=== PATIENT | female | born 1985 | race American Indian/Alaskan Native ===

== ENCOUNTER 2022-01-22 16:08 | Emergency (ER) | payer OTHER ==
[2022-01-22] MEDS ORDERED: ACETAMINOPHEN W/CODEINE 300-30 MG TAB PO ONE (18:14)
[2022-01-22] MEDS ORDERED: KETOROLAC 10 MG TAB PO ONE (18:14)
[2022-01-22] MEDS ORDERED: LIDOCAINE-MPF (1%) 10 MG/1 ML VIAL 5 ML INFILTRATI ONE (18:15)
[2022-01-22] MEDS ORDERED: LIDOCAINE (2%) 20 MG/1 ML VIAL 20 ML MDV INFILTRATI ONE (18:26)
--- NOTE | 2022-01-22 19:12 | Emergency Department Report ---
- General Chief complaint: Extremity Injury, Upper Stated complaint: INFECTED FINGER Time Seen by Provider: 01/22/22 17:18 Source: patient Mode of arrival: Ambulatory Limitations: No Limitations - History of Present Illness Initial comments: 37-year-old black female presents to the emergency department for evaluation of pain and swelling to her right index finger for the past week. He states that she was seen by her primary care doctor a few days ago for same, started on antibiotics, but has not had any improvement. She states that she was given Keflex and doxycycline as antibiotics but she only took the Keflex and now has increased pain and swelling to the area. She denies fever. MD complaint: abscess/boil -: Gradual, week(s) (1) Tetanus Up to Date: yes Location: R hand Severity: severe Severity scale (0 -10): 10 Quality: aching, other (Throbbing) Consistency: constant Worsens with: palpation, movement Context: none (States that she bites her fingernails and sometimes gets this type of infection but not usually this bad.) Associated symptoms: denies other symptoms Treatments Prior to Arrival: antibiotic (Keflex p.o.) - Related Data Previous Rx's Medication Instructions Recorded Last Taken Type Cyclobenzaprine [Flexeril] 10 mg PO TID PRN #30 tablet 07/19/13 Unknown Rx Hydrocodone Bit/Acetaminophen 1 each PO Q8H PRN #20 tablet 07/19/13 Unknown Rx [Lortab 7.5-500 mg] Ibuprofen [Motrin] 600 mg PO Q8H PRN #60 tablet 07/19/13 Unknown Rx Allergies Allergy/AdvReac Type Severity Reaction Status Date / Time penicillin G Allergy Unknown Verified 07/19/13 11:36 Sulfa (Sulfonamide Allergy Unknown Verified 07/19/13 11:36 Antibiotics) Abscess Boil HPI - HPI Chief Complaint: Extremity Injury, Upper Stated Complaint: INFECTED FINGER Time Seen by Provider: 01/22/22 17:18 Home Medications: Previous Rx's Medication Instructions Recorded Last Taken Type Cyclobenzaprine [Flexeril] 10 mg PO TID PRN #30 tablet 07/19/13 Unknown Rx Hydrocodone Bit/Acetaminophen 1 each PO Q8H PRN #20 tablet 07/19/13 Unknown Rx [Lortab 7.5-500 mg] Ibuprofen [Motrin] 600 mg PO Q8H PRN #60 tablet 07/19/13 Unknown Rx Allergies/Adverse Reactions: Allergies Allergy/AdvReac Type Severity Reaction Status Date / Time penicillin G Allergy Unknown Verified 07/19/13 11:36 Sulfa (Sulfonamide Allergy Unknown Verified 07/19/13 11:36 Antibiotics) ED Review of Systems ROS: Stated complaint: INFECTED FINGER Other details as noted in HPI Comment: All other systems reviewed and negative Constitutional: denies: chills, fever, malaise, weakness Respiratory: denies: shortness of breath, SOB with exertion, SOB at rest Cardiovascular: denies: chest pain, palpitations Gastrointestinal: denies: abdominal pain, nausea, vomiting Musculoskeletal: denies: back pain Neurological: denies: headache, weakness ED Past Medical Hx - Past Medical History Previous Medical History?: Yes Hx Hypertension: Yes - Surgical History Past Surgical History?: Yes Additional Surgical History: Tonsil removed - Social History Smoking Status: Current Every Day Smoker Substance Use Type: Alcohol - Medications Home Medications: Home Medications Medication Instructions Recorded Confirmed Last Taken Type Cyclobenzaprine [Flexeril] 10 mg PO TID PRN #30 tablet 07/19/13 Unknown Rx Hydrocodone Bit/Acetaminophen 1 each PO Q8H PRN #20 tablet 07/19/13 Unknown Rx [Lortab 7.5-500 mg] Ibuprofen [Motrin] 600 mg PO Q8H PRN #60 tablet 07/19/13 Unknown Rx ED Physical Exam - General Limitations: No Limitations General appearance: alert, in no apparent distress - Head Head exam: Present: atraumatic, normocephalic - Eye Eye exam: Present: normal appearance. Absent: conjunctival injection - Neck Neck exam: Present: normal inspection - Respiratory Respiratory exam: Absent: respiratory distress - Cardiovascular Cardiovascular Exam: Present: regular rate - GI/Abdominal GI/Abdominal exam: Absent: distended - Expanded Upper Extremity Exam Right Hand Wrist exam: Present: other (Swelling noted to tip of right index finger around nail bed consistent with paronychia. No drainage noted. Noted to be erythematous in some places.) - Back Exam Back exam: Present: normal inspection - Neurological Exam Neurological exam: Present: alert, oriented X3 - Psychiatric Psychiatric exam: Present: normal affect, normal mood - Skin Skin exam: Present: warm, dry, intact, normal color ED Course Vital Signs 01/22/22 01/22/22 16:59 19:29 Temperature 97.9 F 97.5 F L Pulse Rate 78 75 Respiratory 18 16 Rate Blood Pressure 107/78 Blood Pressure 126/61 [Right] O2 Sat by Pulse 100 99 Oximetry - I & D Right Finger Site: Right index finger paronychia Blade Size: 18-gauge needle I & D Procedure: betadine prep Progress: Area cleaned with iodine. Patient given digital block to right index finger. After finger was anesthetized, finger was cleaned again then 18-gauge needle inserted to area around fingernail. Patient noted to have copious amounts of serosanguineous drainage. Swelling significantly improved. Area was cleaned and bandage applied. Patient tolerated well. No immediate complications noted. ED Medical Decision Making - Medical Decision Making 37-year-old black female presents to the emergency department for evaluation of pain and swelling to her right index finger. He states that she was seen by her primary care doctor a few days ago for same, started on antibiotics, but has not had any improvement. She states that she was given Keflex and doxycycline as antibiotics but she only took the Keflex and now has increased pain and swelling to the area. She denies fever. Exam consistent with paronychia of right index finger. After digital block, I&D of paronychia was performed with moderate amount of serosanguineous drainage out. Patient stated during exam that she was given both Keflex and doxycycline but she did not take the doxycycline. She was advised that she should start doxycycline as previously prescribed. She was advised to follow-up with primary care provider or in the ED if no improvement or worsening symptoms. She verbalized understanding and agreement with plan of care. Critical care attestation.: If time is entered above; I have spent that time in minutes in the direct care of this critically ill patient, excluding procedure time. ED Disposition Clinical Impression: Paronychia of right index finger Disposition: 01 HOME / SELF CARE / HOMELESS Is pt being admited?: No Does the pt Need Aspirin: No Condition: Stable Instructions: Paronychia, [id number] Additional Instructions: Start doxycycline as previously prescribed. Follow-up with primary care provider or emergency department if no improvement or worsening symptoms. Referrals: ADEEL CAREY MD [Referring] - 3-5 Days Time of Disposition: 19:12
[2022-01-22 19:31] VITALS: BP 126/61
== END 2022-01-22 19:33 | disposition home or self-care (01) ==
LOC: ED 16:08
DX: L03.011 Cellulitis of right finger (principal); F17.200 Nicotine dependence, unspecified, uncomplicated; F10.20 Alcohol dependence, uncomplicated; I10 Essential (primary) hypertension
CPT/HCPCS: 10060; 99282; J3490

== ENCOUNTER 2022-04-22 21:56 | Emergency (ER) | payer SELFPAY ==
--- NOTE | 2022-04-23 03:27 | XRay Report ---
RIGHT ANKLE 1 VIEW(S) INDICATION / CLINICAL INFORMATION: twisted right ankle COMPARISON: None available. FINDINGS: BONES / JOINT(S): No displaced fracture. No significant arthritis. SOFT TISSUES: No significant abnormality. ADDITIONAL FINDINGS: None. Signer Name: Boris Covarrubias DO Signed: 04/23/2022 3:23 AM Workstation Name: [id number]
--- NOTE | 2022-04-23 05:06 | Emergency Department Report ---
ED Lower Extremity HPI - General Chief Complaint: Extremity Injury, Lower Stated Complaint: TWISTED ANKLE Time Seen by Provider: 04/23/22 03:40 Source: patient Mode of arrival: Ambulatory Limitations: No Limitations - History of Present Illness MD Complaint: ankle injury -: Sudden Type of Injury: inversion Place: street/outdoors Severity: moderate Worsens With: weight bearing, movement, palpation Associated Symptoms: swelling, able to partially bear weight - Related Data Previous Rx's Medication Instructions Recorded Last Taken Type Cyclobenzaprine [Flexeril] 10 mg PO TID PRN #30 tablet 07/19/13 Unknown Rx Hydrocodone Bit/Acetaminophen 1 each PO Q8H PRN #20 tablet 07/19/13 Unknown Rx [Lortab 7.5-500 mg] Ibuprofen [Motrin] 600 mg PO Q8H PRN #60 tablet 07/19/13 Unknown Rx Allergies Allergy/AdvReac Type Severity Reaction Status Date / Time penicillin G Allergy Unknown Verified 04/22/22 22:14 Sulfa (Sulfonamide Allergy Unknown Verified 04/22/22 22:14 Antibiotics) ED Review of Systems ROS: Stated complaint: TWISTED ANKLE Other details as noted in HPI Comment: All other systems reviewed and negative ED Past Medical Hx - Past Medical History Hx Hypertension: Yes - Surgical History Past Surgical History?: Yes Additional Surgical History: Tonsil removed - Social History Smoking Status: Never Smoker Substance Use Type: None - Medications Home Medications: Home Medications Medication Instructions Recorded Confirmed Last Taken Type Cyclobenzaprine [Flexeril] 10 mg PO TID PRN #30 tablet 07/19/13 Unknown Rx Hydrocodone Bit/Acetaminophen 1 each PO Q8H PRN #20 tablet 07/19/13 Unknown Rx [Lortab 7.5-500 mg] Ibuprofen [Motrin] 600 mg PO Q8H PRN #60 tablet 07/19/13 Unknown Rx ED Physical Exam - General Limitations: No Limitations General appearance: alert, in no apparent distress - Head Head exam: Present: atraumatic, normocephalic - Eye Eye exam: Present: normal appearance, PERRL, EOMI Pupils: Present: normal accommodation - ENT ENT exam: Present: normal exam, mucous membranes moist - Neck Neck exam: Present: normal inspection, full ROM - Respiratory Respiratory exam: Present: normal lung sounds bilaterally. Absent: respiratory distress, rales, rhonchi - Cardiovascular Cardiovascular Exam: Present: regular rate, normal rhythm. Absent: systolic murmur, diastolic murmur, rubs, gallop - GI/Abdominal GI/Abdominal exam: Present: soft, normal bowel sounds - Extremities Exam Extremities exam: Present: normal inspection, tenderness - Expanded Lower Extremity Exam Right Lower Leg exam: Present: tenderness, swelling Ankle exam: Present: tenderness, swelling. Absent: abrasion, laceration, ecchymosis, dislocation, erythema Foot/Toe exam: Present: swelling - Back Exam Back exam: Present: normal inspection - Neurological Exam Neurological exam: Present: alert, oriented X3 - Psychiatric Psychiatric exam: Present: normal affect, normal mood - Skin Skin exam: Present: warm, dry, intact, normal color. Absent: rash ED Course Vital Signs 04/22/22 22:09 Temperature 98.2 F Pulse Rate 68 Respiratory 18 Rate Blood Pressure 120/69 [Left] O2 Sat by Pulse 100 Oximetry Critical care attestation.: If time is entered above; I have spent that time in minutes in the direct care of this critically ill patient, excluding procedure time. ED Disposition Clinical Impression: Ankle sprain Disposition: 01 HOME / SELF CARE / HOMELESS Is pt being admited?: No Does the pt Need Aspirin: No Condition: Stable Instructions: How to Use a Stirrup Ankle Brace, [id number], Ankle Sprain, Elastic Bandage and RICE Therapy, How to Use a Stirrup Ankle Brace Referrals: [facility] [Provider Group] - 3-5 Days
[2022-04-23 05:55] VITALS: BP 126/78
== END 2022-04-23 05:55 | disposition home or self-care (01) ==
LOC: ED 21:56
DX: S99.911A Unspecified injury of right ankle, initial encounter (principal); X50.1XXA Overexertion from prolonged static or awkward postures, initial encounter; Y93.89 Activity, other specified; Y92.89 Other specified places as the place of occurrence of the external cause; Y99.8 Other external cause status
CPT/HCPCS: 99283

== ENCOUNTER 2022-06-26 12:40 | Emergency (ER) | payer OTHER ==
[2022-06-26 13:58] VITALS: BP 121/74
[2022-06-26] MEDS ORDERED: HYDROcodone/ACETAMINOPHEN 5-325 MG TAB PO ONE (17:45)
[2022-06-26] MEDS ORDERED: IBUPROFEN 800 MG TAB PO ONE (17:45)
[2022-06-26] MEDS ORDERED: CYCLOBENZAPRINE 10 MG TAB PO ONE (17:45)
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
== END 2022-06-26 18:30 | disposition home or self-care (01) ==
LOC: ED 12:40
DX: M79.10 Myalgia, unspecified site (principal); V89.2XXA Person injured in unspecified motor-vehicle accident, traffic, initial encounter; Y93.89 Activity, other specified; Y92.89 Other specified places as the place of occurrence of the external cause; Y99.8 Other external cause status
CPT/HCPCS: 99282